=== PATIENT | female | born 1995 | race American Indian/Alaskan Native ===

== ENCOUNTER → 2022-04-01 | Outpatient (CLI) | payer BC | LOC: MC.RAD 12:50 | DX: N63.10 Unspecified lump in the right breast, unspecified quadrant (principal) ==

== ENCOUNTER → 2022-04-09 | Outpatient (CLI) | payer BC | LOC: COL.RAD 11:13 | DX: N94.89 Other specified conditions associated with female genital organs and menstrual cycle (principal) ==